=== PATIENT | female | born 1970 | race Asian ===

== ENCOUNTER 2021-09-08 15:04 | Outpatient (REF) | payer SELFPAY ==
[2021-09-08 16:51] LABS: MANUAL DIFF FLAG NO
[2021-09-08 16:56] LABS: Basophils Percent Auto 0.5 % (0-2); Eosinophils Absolute Auto 0.3 X10*3/uL (0.0-0.4); Eosinophils Percent Auto 3.5 % (0-4); Hematocrit 37.3 % (37.0-47.0); Hemoglobin 12.3 g/dl (12.0-16.0); Imm Gran Abs Auto 0.03 X10*3/uL (0.00-0.03); Imm Gran Pct Auto 0.4 % (0.0-0.4); Lymphocytes Absolute Auto 2.2 X10*3/uL (1.2-4.9); Lymphocytes Percent Auto 27.2 % (20-40); Mean Corpuscular Hemoglobin 29.3 pg (27.0-33.0); Mean Corpuscular Volume 88.8 fL (80.0-98.0); Mean Platelet Volume 12.9 fL (9.4-12.3); Monocytes Absolute Auto 0.6 X10*3/uL (0.1-1.2); Monocytes Percent Auto 6.9 % (2-11); Neutrophils Percent Auto 61.5 % (45-73); Platelet Count 185 X10*3/uL (160-400); Red Cell Distribution Width 13.2 % (11.0-16.0); White Blood Count 8.1 X10*3/uL (4.8-10.8)
[2021-09-08 17:27] LABS: Anion Gap 9 (12-20); Blood Urea Nitrogen 9 mg/dL (9-16); Calcium 9.3 mg/dL (8.4-10.2); Carbon Dioxide 25 mmol/L (22-29); Chloride 108 mmol/L (96-108); Estimated Glomerular Filt Rate > 60; Glucose Random 80 mg/dL (60-115); Potassium 4.2 mmol/L (3.3-5.1); Sodium 138 mmol/L (135-145)
[2021-09-08 17:49] LABS: Thyroid Stimulating Hormone 1.41 uIU/mL (0.32-4.0)
== END 2021-09-08 15:05 | disposition home or self-care (01) ==
LOC: HO.HMGCLDS 15:04
PROVIDERS: Visit Provider Nurse Practitioner Family
DX: R42 Dizziness and giddiness (principal); R53.83 Other fatigue
CPT/HCPCS: 36415; 80048; 84443; 85025

== ENCOUNTER 2021-12-14 14:11 | Emergency (ER) | payer SELFPAY ==
--- NOTE | ~2021-12-14 | US_ITS ---
EXAMINATION: US ABDOMEN LIMITED CLINICAL INFORMATION: Right upper quadrant pain. COMPARISON: None TECHNIQUE: Real-time imaging of the right upper quadrant abdominal viscera. FINDINGS: PANCREAS: There is a cyst in the pancreatic head measuring 1.3 x 0.5 x 1.1 cm. LIVER: Normal. The liver is normal in size. The liver contour is normal. Parenchymal echogenicity is normal. No focal hepatic lesion. There is no intrahepatic biliary duct dilatation seen. Main portal vein is patent. GALLBLADDER: There is an immobile stone in the gallbladder neck. No gallbladder wall thickening or pericholecystic fluid. Sonographic Gavin sign is positive. COMMON BILE DUCT: Normal in caliber measuring 0.6 cm in diameter. RIGHT KIDNEY: Normal. No hydronephrosis. No renal calculi or focal parenchymal lesions. The kidney measures 11.0 cm in maximum dimension. FREE FLUID: None. US/US abdomen limited IMPRESSION: * Immobile stone in the gallbladder neck. Also, sonographic Gavin sign is positive. These isolated findings are nonspecific in the absence of additional evidence of cholecystitis. If there is persistent clinical concern for cholecystitis, recommend HIDA scan. * Incidental 1.3 cm cystic structure in the pancreatic head. Recommend nonemergent MRI/MRCP for further evaluation.
[2021-12-14 14:34] VITALS: BP 101/62; PULSE 58; RESP 18; TEMP 36.8; O2SAT 100; BMI 27.6
[2021-12-14 14:46] LABS: MANUAL DIFF FLAG NO
[2021-12-14 14:47] LABS: Basophils Percent Auto 0.4 % (0-2); Eosinophils Percent Auto 0.5 % (0-4); Hematocrit 35.8 % (37.0-47.0); Hemoglobin 12.3 g/dl (12.0-16.0); Imm Gran Abs Auto 0.02 X10*3/uL (0.00-0.03); Imm Gran Pct Auto 0.4 % (0.0-0.4); Lymphocytes Absolute Auto 0.9 X10*3/uL (1.2-4.9); Lymphocytes Percent Auto 16.4 % (20-40); Mean Corpuscular HGB Conc 34.4 g/dl (31.0-35.0); Mean Corpuscular Hemoglobin 29.6 pg (27.0-33.0); Mean Corpuscular Volume 86.1 fL (80.0-98.0); Mean Platelet Volume 11.6 fL (9.4-12.3); Monocytes Absolute Auto 0.4 X10*3/uL (0.1-1.2); Monocytes Percent Auto 6.3 % (2-11); Neutrophils Absolute Auto 4.2 x10*3/uL (2.0-8.3); Platelet Count 191 X10*3/uL (160-400); Red Blood Count 4.16 X10*6/uL (4.20-5.50); Red Cell Distribution Width 13.2 % (11.0-16.0); White Blood Count 5.6 X10*3/uL (4.8-10.8)
[2021-12-14 15:05] LABS: Appearance Urine Cloudy; Color Urine Dark Yellow; Glucose Urine UA Negative (Negative); Leukocyte Esterase Urine Negative (Negative); Nitrite Urine Negative (Negative); PH 5.5 (5.0-8.0); Specific Gravity - Urine >= 1.030 (1.005-1.025); Urine Blood Small (1+) (Negative); Urine Ketones Trace mg/dL (Negative); Urine Protein 30 (1+) mg/dL (Neg-Trace)
[2021-12-14 15:14] LABS: Alanine Aminotransferase 46 U/L (0-31); Alkaline Phosphatase 63 U/L (39-117); Anion Gap 12 (12-20); Aspartate Amino Transferase 59 U/L (5-31); Bilirubin Direct 0.2 mg/dL (0.0-0.5); Bilirubin Total 0.4 mg/dL (0.0-1.0); Blood Urea Nitrogen 11 mg/dL (9-16); Calcium 9.2 mg/dL (8.4-10.2); Carbon Dioxide 22 mmol/L (22-29); Chloride 109 mmol/L (96-108); Creatinine Clr Calc Pharmacy 72.6; Estimated Glomerular Filt Rate > 60; Glucose Random 142 mg/dL (60-115); Lipase 29 U/L (8-78); Potassium 3.5 mmol/L (3.3-5.1); Sodium 139 mmol/L (135-145); Total Protein 7.1 g/dL (6.5-8.0)
[2021-12-14 15:23] LABS: WBC Urine 0-5 /HPF (0-5)
[2021-12-14 15:24] LABS: Bacteria Urine None Seen (None Seen)
--- NOTE | 2021-12-14 21:38 | ED_ITS ---
HPI - General Adult General Chief complaint: Abdominal Pain Stated complaint: Liver pain Time Seen by Provider: 12/14/21 14:58 Source: patient Limitations: language barrier (Family member translating) History of Present Illness HPI narrative: This is a 51-year-old female with a history of , and history of an unspecified ?liver problems?, who complains of pain in her right upper abdomen since yesterday. Patient denies alcohol use. She denies any nausea or vomiting. She denies any other prior surgical history. Pain is not worse with eating. She has been taking Advil for the pain which has been helping. She denies fever. She did have constipation for a few days but took matcha green tea and then did have loose stool. She denies any acute low back pain, has some chronic low back pain and feeling of unsteadiness in her legs which she and her family attribute to her distant history of epidural injections. She denies any dysuria or urinary frequency. Related Data Home Medications Medication Instructions Recorded Confirmed No Known Home Meds 09/08/21 09/08/21 Allergies Allergy/AdvReac Type Severity Reaction Status Date / Time No Known Allergies Allergy Verified 09/08/21 14:14 Review of Systems Review of Systems: Yes all other systems are reviewed and are negative Constitutional: Constitutional: Reports as per HPI and Denies fever(s) Eyes: Eyes: Reports as per HPI and Reports no additional eye complaints ENT: Reports system reviewed and no additional complaints, except as documented, Reports as per HPI, Denies nasal congestion, Denies nasal discharge and Denies sore throat Cardiovascular: Cardiovascular: Reports as per HPI, Denies chest pain and Denies dyspnea Respiratory: Respiratory: Reports as per HPI, Denies cough and Denies dyspnea Gastrointestinal: Gastrointestinal: Reports as per HPI, Reports abdominal pain, Reports constipation, Denies diarrhea and Denies vomiting Genitourinary: Genitourinary: Reports as per HPI, Denies hematuria, Denies urinary frequency and Denies dysuria Musculoskeletal: Musculoskeletal: Reports no additional musculoskeletal complaints, Reports back pain and Denies numbness Integumentary/Breasts: Skin/Breast: Reports as per HPI and Denies rash Neurologic: Reports as per HPI, Denies focal weakness and Denies numbness Psychiatric: Psychiatric: Reports no additional psychiatric complaints and Reports as per HPI Endocrine: Endocrine: Reports no additional endocrine complaints and Reports as per HPI Hematologic/Lymphatic: Hematologic/Lymphatic: Reports no additional hematologic/lymphatic complaints, Reports as per HPI and Reports other (No peripheral edema) PENDING SALE TO [facility] Social History Social History Advance Directives: No Advance Directives Information Provided: No Physical Exam ED Vital Signs: Vital Signs - 24 hr 12/14/21 14:34 12/15/21 00:00 Temperature 98.2 F 97.7 F Pulse Rate 58 51 Respiratory Rate 18 16 Blood Pressure 101/62 128/67 Pulse Oximetry 100 98 Oxygen Delivery Method Room Air Room Air BMI result Body Mass Index 27.6 Const General: no acute distress Orientation/consciousness: patient oriented x3 HENMT Head: Yes normal to inspection General nose exam: Normal external nose present Mouth: moist mucous membranes Throat: Yes posterior oropharynx normal, Yes tonsils normal and Yes uvula midline Eyes Eyelids: Yes eyelids normal Conjunctivae: conjunctivae normal Pupils: Equal, round and reactive pupils present Neck Neck: Yes supple Resp Effort & Inspection: normal respiratory effort Auscultation: clear to auscultation bilaterally Cardio Rate: regular rate Rhythm: regular rhythm Heart sounds: S1 normal heart sound present, S2 normal heart sound present, no gallops, no murmurs and no rubs GI Inspection: No distended Palpation (GI): Soft to palpation and nontender Auscultation: normal bowel sounds Skin General skin exam: other (Warm and dry) Neuro General: patient oriented x3 and CN's II-XI intact bilaterally Cranial nerves: Yes Equal, round and reactive pupils present Extrem General: Yes no pedal edema Psych Affect: normal affect Attitude: cooperative Medical Decision Making [facility] Narrative Medical decision making narrative: Patient with right upper quadrant pain, had mild tenderness on exam, felt better in the ED with minimal pain prior to discharge, without getting any pain medicine here. Patient is afebrile, white blood cell count normal. Very mild transaminase elevation but normal bilirubin and alkaline phosphatase. Ultrasound did show a gallstone in the neck of the gallbladder, but no gall bladder wall thickening or pericholecystic fluid. Recommend GI follow-up. Case discussed with Dr. Joshi in order to expedite GI follow-up. General surgery follow-up also given per his recommendation. Patient's urinalysis did show a few rbc's, no evidence of infection. Clinically doubt nephrolithiasis given the broad clinical picture Lab Data Result diagrams: 12/14/21 14:41 12/14/21 14:41 Labs: Lab Results 12/14/21 12/14/21 12/14/21 Range/Units 14:41 14:41 14:47 WBC 5.6 (4.8-10.8) X10*3/uL RBC 4.16 L (4.20-5.50) X10*6/uL Hgb 12.3 (12.0-16.0) g/dl Hct 35.8 L (37.0-47.0) % MCV 86.1 (80.0-98.0) fL MCH 29.6 (27.0-33.0) pg MCHC 34.4 (31.0-35.0) g/dl RDW 13.2 (11.0-16.0) % Plt Count 191 (160-400) X10*3/uL MPV 11.6 (9.4-12.3) fL Immature Gran % (Auto) 0.4 (0.0-0.4) % Neut % (Auto) 76.0 H (45-73) % Lymph % (Auto) 16.4 L (20-40) % [place] % (Auto) 6.3 (2-11) % Eos % (Auto) 0.5 (0-4) % Baso % (Auto) 0.4 (0-2) % Lymph # (Auto) 0.9 L (1.2-4.9) X10*3/uL [place] # (Auto) 0.4 (0.1-1.2) X10*3/uL Eos # (Auto) 0.0 (0.0-0.4) X10*3/uL Baso # (Auto) 0.0 (0.0-0.2) X10*3/uL Abs Immat Gran (auto) 0.02 (0.00-0.03) X10*3/uL Absolute Neuts (auto) 4.2 (2.0-8.3) x10*3/uL Absolute Nucleated RBC 0.000 (0.0-0.012) X10*3/uL Nucleated RBC % (auto) 0.0 (0.0-0.2) /100WBC Sodium 139 (135-145) mmol/L Potassium 3.5 (3.3-5.1) mmol/L Chloride 109 H (96-108) mmol/L Carbon Dioxide 22 (22-29) mmol/L Anion Gap 12 (12-20) BUN 11 (9-16) mg/dL Creatinine 0.77 (0.5-1.4) mg/dL Estim Creat Clear Calc 72.6 Estimated GFR > 60 Random Glucose 142 H (60-115) mg/dL Calcium 9.2 (8.4-10.2) mg/dL Total Bilirubin 0.4 (0.0-1.0) mg/dL Direct Bilirubin 0.2 (0.0-0.5) mg/dL AST 59 H (5-31) U/L ALT 46 H (0-31) U/L Alkaline Phosphatase 63 (39-117) U/L Total Protein 7.1 (6.5-8.0) g/dL Albumin 4.0 (3.5-5.0) g/dL Lipase 29 (8-78) U/L Urine Color Dark Yellow Urine Appearance Cloudy Urine pH 5.5 (5.0-8.0) Ur Specific [place] >= 1.030 H (1.005-1.025) Urine Protein 30 (1+) H (Neg-Trace) mg/dL Urine Glucose (UA) Negative (Negative) mg/dL Urine Ketones Trace (Negative) mg/dL Urine Blood Small (1+) H (Negative) Urine Nitrite Negative (Negative) Ur Leukocyte Esterase Negative (Negative) Urine RBC 6-10 H (0-2) /HPF Urine WBC 0-5 (0-5) /HPF Ur Squamous Epith Cells 3-5 (0-2) /HPF Urine Bacteria None Seen (None Seen) Hyaline Casts 3-5 (0-2) /LPF Imaging Data Abdominal ultrasound right upper quadrant: Radiologist's impression: IMPRESSION: *? Immobile stone in the gallbladder neck. Also, sonographic Gavin sign is positive. These isolated findings are nonspecific in the absence of additional evidence of cholecystitis. If there is persistent clinical concern for cholecystitis, recommend HIDA scan. *? Incidental 1.3 cm cystic structure in the pancreatic head. Recommend nonemergent MRI/MRCP for further evaluation. Discharge Plan Discharge Clinical Impression: Gallstones Patient Disposition: Home, Self-Care Instructions: Gallstones (ED) Additional Instructions: Avoid fatty or greasy or fried foods. Return for any worsened symptoms such as increased pain, vomiting, fever. Follow-up with gastroenterology for further evaluation. Use ibuprofen for pain. Prescriptions: No Action No Known Home Meds Referrals: Aquilino Joshi [Physician] - 3 days Lamont Curry MD [Physician] - 3 days Interventions: ED Discharge Assessment Last Done: 12/15/21 00:09 Discharge Date/Time: 12/15/21 00:21
[2021-12-15] VITALS: BP 128/67; PULSE 51; RESP 16; TEMP 36.5; O2SAT 98
== END 2021-12-15 00:21 | disposition home or self-care (01) ==
PROVIDERS: Emergency Provider Emergency Medicine
DX: K80.20 Calculus of gallbladder without cholecystitis without obstruction (principal); R10.11 Right upper quadrant pain
CPT/HCPCS: 36415; 76705; 80053; 81001; 81003; 82248; 83690; 85025; 99283; 99284